=== PATIENT | female | born 1940 | race Caucasian/White ===

== ENCOUNTER → 2016-11-09 | Outpatient (CLI) | payer MEDICARE ==
[~2016-11-09] MED LIST: ASPIRIN 81M81 MG/TA2 PO; ATIVAN 0.50.5 MG/TAB PO; AVAPRO300 M1 PO; CALCIUM + D 5001 TAB PO; DIOVAN160 M1 PO; FERROUS SU325 MG/TAB PO; FISH OIL CONC1000 MG PO; FOLIC ACID 40400 MCG PO; HYDROCODONE/APAP PO; LUTEIN20 MG PO; NABUMETONE750 MG PO; NEURONTIN300 MG/CAP PO; NORFLEX 10100 MG/TAB PO; PERCOCET 325 MG1 TA2 PO; SUPER B COMPLEX1 TA2 PO; THERAGRAN1 TA1 PO; TYLENOL PM; ULTRAM 50MG TAB50 MG PO; VITAMIN C BUFF500 MG PO; VITAMINC1000TA; VITAMINS; ZOFRAN4 M1 PO
== END ==
LOC: MC.RAD 13:00
DX: Z12.31 Encounter for screening mammogram for malignant neoplasm of breast (principal)

== ENCOUNTER → 2017-11-24 | Outpatient (CLI) | payer MEDICARE | LOC: MC.RAD 13:56 | DX: Z12.31 Encounter for screening mammogram for malignant neoplasm of breast (principal) ==

== ENCOUNTER → 2018-03-26 | Outpatient (CLI) | payer MEDICARE | LOC: COL.RAD 10:20 | DX: M47.812 Spondylosis without myelopathy or radiculopathy, cervical region (principal); M48.02 Spinal stenosis, cervical region | CPT/HCPCS: Q9967 ==

== ENCOUNTER → 2018-11-14 | Outpatient (CLI) | payer MEDICARE | LOC: COL.RAD 07:15 | DX: K57.30 Diverticulosis of large intestine without perforation or abscess without bleeding (principal); K63.89 Other specified diseases of intestine; Z90.49 Acquired absence of other specified parts of digestive tract ==

== ENCOUNTER → 2018-11-28 | Outpatient (CLI) | payer MEDICARE | LOC: MC.RAD 08:14 | DX: Z12.31 Encounter for screening mammogram for malignant neoplasm of breast (principal) ==

== ENCOUNTER 2019-02-15 10:12 | Day surgery (SDC) | payer MEDICARE ==
[2006-05-28 03:03] VITALS: BP 136/67
[~2019-02-15] VITALS: Ht 160 cm; Wt 77.0 kg
[2019-02-15] MEDS ORDERED: AVAPRO300 M1 PO ×2 (11:12→11:17)
[2019-02-15] MEDS ORDERED: HCTZ 25MG TAB25 MG PO (11:12)
[2019-02-15] MEDS ORDERED: ATIVAN 0.50.5 MG/TAB PO (11:15)
[2019-02-15] MEDS ORDERED: VITAMINC1000TA PO (11:16)
[2019-02-15] MEDS ORDERED: MULTI VITAMINS1 TAB PO (11:17)
[2019-02-15] MEDS ORDERED: DEXILANT60 MG PO (11:17)
[2019-02-15] MEDS ORDERED: FLORAJEN A20 Billion PO (11:18)
[2019-02-15] MEDS ORDERED: CARDI-OMEGA1000 MG PO (11:20)
[2019-02-15] MEDS ORDERED: CALCIUM-MAGNES1 EAC1 PO (11:21)
[2019-02-15] MEDS ORDERED: VITAMIN B COMPL1 SGL PO (11:22)
[2019-02-15] MEDS ORDERED: ASPIRIN E.C. 8181 MG PO (11:23)
[2019-02-15] MEDS ORDERED: TYLENOL PM EXTR1 TA1 PO (11:24)
[2019-02-15 11:43] VITALS: BP 134/65; PULSE 86; TEMP 97.8
[2019-02-15 12:40] VITALS: BP 127/60; PULSE 80; TEMP 97.5
--- NOTE | 2019-02-15 12:40 | NUR ---
Patient brought back to [facility], alert and oriented. Ambulated to recliner without difficulty. Denies any nausea or pain. Vital signs stable. States she would like a water. Tolerating well. and son at bedside. Call berger within reach, will continue to monitor.
[2019-02-15 12:55] VITALS: BP 133/72; PULSE 72
--- NOTE | 2019-02-15 12:55 | NUR ---
Vital signs stable, patient states she is feeling well. Tolerating water without diffculty. States she doesnt want anything to eat. Will continue to monitor.
[2019-02-15 13:10] VITALS: BP 112/60; PULSE 80
--- NOTE | 2019-02-15 13:10 | NUR ---
Patient states she feels ready to go home at this time. Vital signs stable. Will continue to monitor.
--- NOTE | 2019-02-15 13:30 | NUR ---
Discharge instructions reviwed with patient and family. Verbalized understand. All questions answered. Patient ambulated to lobby without difficulty. To be driven home by .
== END 2019-02-15 13:30 | disposition home or self-care (01) ==
LOC: SDCO 10:12
DX: K21.9 Gastro-esophageal reflux disease without esophagitis (principal); K44.9 Diaphragmatic hernia without obstruction or gangrene; K59.00 Constipation, unspecified; I10 Essential (primary) hypertension; K57.30 Diverticulosis of large intestine without perforation or abscess without bleeding; G43.909 Migraine, unspecified, not intractable, without status migrainosus; Z96.651 Presence of right artificial knee joint; Z88.2 Allergy status to sulfonamides; Z91.030 Bee allergy status; Z90.49 Acquired absence of other specified parts of digestive tract; Z90.710 Acquired absence of both cervix and uterus; Z85.42 Personal history of malignant neoplasm of other parts of uterus
CPT/HCPCS: J2405; J2704; J7120

== ENCOUNTER → 2019-12-09 | Outpatient (CLI) | payer MEDICARE ==
[~2019-12-09] MED LIST changes: +ASPIRIN E.C. 8181 MG PO; +CALCIUM-MAGNES1 EAC1 PO; +CARDI-OMEGA1000 MG PO; +DEXILANT60 MG PO; +FLORAJEN A20 Billion PO; +HCTZ 25MG TAB25 MG PO; +MULTI VITAMINS1 TAB PO; +TYLENOL PM EXTR1 TA1 PO; +VITAMIN B COMPL1 SGL PO; +VITAMINC1000TA PO
== END ==
LOC: MC.RAD 15:03
DX: Z12.31 Encounter for screening mammogram for malignant neoplasm of breast (principal)

== ENCOUNTER → 2020-12-09 | Outpatient (CLI) | payer MEDICARE | LOC: MC.RAD 11:00 | DX: Z12.31 Encounter for screening mammogram for malignant neoplasm of breast (principal) ==

== ENCOUNTER 2022-02-07 13:22 | Outpatient (RCR) | payer MEDICARE | END 2022-03-02 | disposition home or self-care (01) | LOC: MKS.ESL.PT | DX: R26.89 Other abnormalities of gait and mobility (principal); W19.XXXA Unspecified fall, initial encounter ==